=== PATIENT | female | born 1995 | race Caucasian/White ===

== ENCOUNTER → 2023-03-31 14:29 | Outpatient (CLI) | payer BC, SELFPAY ==
[2023-04-05 00:08] LABS: F002-IgE Milk <0.10 kU/L (Class 0)
== END ==
PROVIDERS: PCP Nurse Practitioner Family; Visit Provider Nurse Practitioner Family
DX: K90.49 Malabsorption due to intolerance, not elsewhere classified (principal)
CPT/HCPCS: 86003

== ENCOUNTER → 2023-05-20 09:38 | Outpatient (POV) | payer BC, SELFPAY | PROVIDERS: PCP Nurse Practitioner Family; Visit Provider Dermatology | DX: Z00.00 Encounter for general adult medical examination without abnormal findings (principal) ==

== ENCOUNTER 2023-08-14 22:33 | Outpatient (CLI) | payer BC, SELFPAY | END 2023-08-14 23:59 | LOC: LAB.DROPOF 22:33 | PROVIDERS: PCP Student in an Organized Health Care Education/Training Program; Visit Provider Student in an Organized Health Care Education/Training Program | DX: J02.9 Acute pharyngitis, unspecified (principal) | CPT/HCPCS: 87070 ==

== ENCOUNTER 2024-04-28 11:11 | Outpatient (CLI) | payer BC, SELFPAY ==
[2024-04-28 13:07] LABS: HIV (1&2) Antibody Rapid NONREACTIVE (NONREACTIVE)
[2024-04-29 06:26] LABS: HCV Ab Non Reactive (Non Reactive)
[2024-04-29 12:29] LABS: Rapid Plasma Reagin Ab Titer Non Reactive titer (NonRea<1:1)
== END 2024-04-28 23:59 | disposition home or self-care (01) ==
LOC: LAB 11:12
PROVIDERS: PCP Nurse Practitioner Family; Visit Provider Obstetrics & Gynecology
DX: Z11.3 Encounter for screening for infections with a predominantly sexual mode of transmission (principal)
CPT/HCPCS: 36415; 86593; 86803; 87389

== ENCOUNTER 2024-05-26 15:36 | Outpatient (CLI) | payer BC, SELFPAY ==
--- NOTE | 2024-05-26 15:41 | US_ITS ---
PROCEDURE: US TRANSVAGINAL CLINICAL INDICATION: Check IUD Strings COMPARISON: No exams were available for comparison FINDINGS: Transvaginal sonographic images of the pelvis were obtained. UTERUS: 7.8cm x 4.1cmx 3.3cm anteverted with a combined endometrial thickness of 5.6mm. There is an IUD within the uterine cavity in the correct position. There is a trace of fluid at the fundus of the uterus superior to the IUD. LEFT OVARY: [id number] with a volume of 9.7ml. There are multiple small follicles in the left ovary. There is a dominant follicle measuring 1.7 cm x 1.3 cm RIGHT OVARY: 4cmx [id number] with a volume of 7.2ml. There are multiple small peripheral follicles giving the ovary a polycystic appearance. Both ovaries are seen and appear normal. Doppler flow to both ovaries are seen. There is no fluid in the cul-de-sac. IMPRESSION: 1. Anteverted uterus normal in shape and size. Within the uterine cavity there is an IUD in the correct position. 2. Both ovaries are seen and appear normal. The right ovary appears polycystic. The left ovary has a dominant follicle measuring 1.7 cm. 3. No fluid in the cul-de-sac. Dictated by: Jonathan Smith MD 05/26/2024 16:51 Jonathan Smith MD in [facility] 05/26/2024 16:51
== END 2024-05-26 23:59 | disposition home or self-care (01) ==
LOC: RAD 15:37
PROVIDERS: PCP Nurse Practitioner Family; Visit Provider Obstetrics & Gynecology
DX: T83.32XA Displacement of intrauterine contraceptive device, initial encounter (principal)
CPT/HCPCS: 76830